=== PATIENT | male | born 1980 | race Caucasian/White ===

== ENCOUNTER → 2017-05-27 | Outpatient (CLI) | payer OTHER ==
--- NOTE | 2017-05-27 16:41 | DIAGNOSTIC IMAGING REPORT ---
TWO VIEW CHEST CLINICAL HISTORY: +PPD. FINDINGS: PA and lateral chest radiographs are obtained. No prior studies are available for comparison at the time of dictation. The PA view is degraded by patient rotation. The cardiomediastinal silhouette is unremarkable. There is elevation of the right hemidiaphragm and bibasilar atelectasis. The lungs are otherwise clear. There is no pleural effusion or pneumothorax. The bony thorax appears intact. IMPRESSION: No active disease in the chest. Electronically signed by: Ford Baker M.D. 05/27/2017 4:39 PM Dictated Date/Time: 05/27/2017 4:39 PM
== END | disposition home or self-care (01) ==
LOC: C.LAB1850 16:18
PROVIDERS: ATTEND Family Medicine
DX: R76.11 Nonspecific reaction to tuberculin skin test without active tuberculosis (principal)